=== PATIENT | male | born 1950 | race Caucasian/White ===

== ENCOUNTER 2019-06-30 13:06 | Emergency (ER) | payer MEDICARE, MEDICAID ==
[~2019-06-30] VITALS: Ht 182.9 cm; Wt 117.9 kg
[2019-06-30 13:19] VITALS: BP_SYST 97; BP_DIAS 58; BP_DIAS 69
--- NOTE | 2019-06-30 13:23 | ER.PDOC ---
General Chief Complaint: Requesting Medical Care Stated Complaint: GROIN PAIN Time seen by MD: 13:17 Source: patient Exam Limitations: no limitations History of Present Illness Initial Comments Rash both groins for 1 Month Severity: moderate Quality: itchy Past Medical History Medical History: no pertinent history Family History Significant Family History: no pertinent family hx Constitutional: no symptoms reported Cardiovascular: no symptoms reported Gastrointestinal: no symptoms reported Skin: see HPI All Other Systems: Reviewed and Negative Physical Exam General Appearance: alert, no distress Skin: skin rash Location: other (both inguinal areas extending to the scrotum) Character: erythematous EENT: eyes nml inspection, lips/gums nml, pharynx nml Neck: trachea midline, no swelling Respiratory: no resp. distress, breath sounds nml CVS: reg. rate & rhythm, heart sounds nml Abdomen: non-tender, no organomegaly NEURO/PSYCH: oriented x 3, CN's nml as tested, motor nml, sensation nml, mood/affect nml Departure Time of Disposition: 13:22 Disposition: 01 HOME, SELF-CARE Impression: Primary Impression: Tinea cruris Additional Impression: Cellulitis Condition: Stable Additional Instructions: Terbinafine 1% Bactrim DS Keep area dry and clean F/U with your PCP next week Duration or Time Spent with Pa: 20 mins Problem Qualifiers Additional Impression: Cellulitis Site of cellulitis: unspecified site Qualified Codes: L03.90 - Cellulitis, unspecified SARAH LARSEN MD Jun 30, 2019 13:23
== END 2019-06-30 13:28 | disposition home or self-care (01) ==
LOC: EDBD 13:06 → ER 13:06
DX: N49.2 Inflammatory disorders of scrotum (principal); B35.6 Tinea cruris
CPT/HCPCS: 99283

== ENCOUNTER 2019-06-30 19:02 | Emergency (ER) | payer MEDICARE, MEDICAID | END 2019-06-30 19:30 | disposition left against medical advice (07) | LOC: ER 19:02 | DX: R10.30 Lower abdominal pain, unspecified (principal); Z53.21 Procedure and treatment not carried out due to patient leaving prior to being seen by health care provider ==